=== PATIENT | female | born 1990 | race Caucasian/White ===

== ENCOUNTER 2016-08-11 05:47 | Day surgery (SDC) | payer OTHER ==
[2016-08-10 08:57] VITALS: BMI 26.6
[~2016-08-11 05:47] MED LIST: metroNIDAZOLE 0.75% VAGINAL GEL 70 GM TUBE VG ONE
--- NOTE | 2016-08-11 09:33 | HP ---
Past Medical History - Primary Care Physician PCP:: Yeni Lentz - Admission Chief Complaint: 26 yrs , LMP 07/28/16 is diagnozed HGSIL of cx , HRHPV pos , hence she is admitted for LEEP Cone Bx of Cx History of Present Illness: pap smear h/o colposcopy 07/20/16 : satisfactory Thick WE bet 4&5o'clock Cx Bx report benign , ECC HSIL infavor of THOMAS 2-3 Pap 02/24/16 HSIL, HR ( non 16/18)HPV Pos 07/18/14 NILM 01/19/14 ASCUS, Non 16/18 HR HPV pos colposcopy 02/26/14 satisfactory , WE 6 O'clock Bx LGSIL, ECC neg pap 05/24/12 NILM HPV ( non 16/18) HR pos Menst Hx : irregular cycle , since Mirena placed .2-3 months cycle, heavy for 5- 6 days before Mirena , MC, regular 28-30 daysx 3-4 days bleeding Contraception Mirena 12/31/12 inserted , removed in 2yrs Mirena reinsertion 05/06/2015 continuing presently History Source: Patient, Medical Record Limitations to Obtaining History: No Limitations - Past Medical History ELIGIBILITY SPECIALIST: No: Migraine, Seizure Cardiovascular: No: HTN, Murmur Pulmonary: No: Asthma, COPD Gastrointestinal: No: Gastritis, GERD Hepatobiliary: No: Hepatitis B Renal/: No: UTI Reproductive: No: Endometriosis, Fibroids, PID ...: 2 ...Para: 2 (2 11/03/12 & 04/19/14 ) ...LMP: 07/28/16 Heme/Onc: Yes: Anemia Infectious Disease: Yes: STD's (h/o Non 16/18 HR HPV pos). No: AIDS, HIV, MRSA Psych: No: Addictions, Anxiety, Bipolar, Depression, Panic Endocrine: No: Diabetes Mellitus, Hyperparathyroidism, Hyperthyroidism, Hypothyroidism Additional Medical History: h/o abn pap01/29/14 ASCUS, non HR HPV pos. 02/16/14 colposcopy cx bx lsil. 07/16/2014 pap - Past Surgical History Past Surgical History: Yes: None Hx Myomectomy: No Hx Transabdominal Cerclage: No - Smoking History Smoking history: Never smoked Have you smoked in the past 12 months: No Aproximately how many cigarettes per day: 0 - Alcohol/Substance Use Hx Alcohol Use: No History of Substance Use: reports: None - Social History History of Recent Travel: No Home Medications - Allergies Allergies/Adverse Reactions: Allergies Allergy/AdvReac Type Severity Reaction Status Date / Time No Known Allergies Allergy Verified 08/11/16 09:31 - Home Medications Home Medications: Ambulatory Orders NK [No Known Home Medication] 08/10/16 Physical Exam-[employer]URANCE [employer] [place] Vital Signs: Vital Signs Temperature 97.8 F 08/10/16 08:44 Pulse Rate 72 08/10/16 08:44 Respiratory Rate 20 08/10/16 08:44 Blood Pressure 107/73 08/10/16 08:44 O2 Sat by Pulse Oximetry (%) Constitutional: Yes: Well Nourished Eyes: Yes: WNL HENT: Yes: WNL, Normocephalic Neck: Yes: WNL Cardiovascular: Yes: WNL, Regular Rate and Rhythm Respiratory: Yes: WNL, Regular, CTA Bilaterally Gastrointestinal: Yes: WNL, Normal Bowel Sounds ...Rectal Exam: Yes: WNL Renal/: Yes: WNL. No: CVA Tenderness - Left, CVA Tenderness - Right Pelvis: Yes: WNL External Genitalia: Yes: Normal. No: Bleeding Internal Exam Deferred: Yes Vaginal Exam: Yes: Normal. No: Bleeding, Condyloma Cervix: Yes: Normal, Other (iud string visualized & felt). No: Cervicitis, Cerv Motion Tenderness, Polyp Uterus: Yes: Normal, Freely Moveable, Anteverted, Firm. No: Mass, Tender Adnexa: Normal: Bilateral, Not Palpable: Bilateral Breast(s): Yes: WNL. No: Discharge from Nipple, Mass Musculoskeletal: Yes: WNL Extremities: Yes: WNL. No: Calf Tenderness Edema: No Integumentary: Yes: WNL Neurological: Yes: WNL, Alert, Oriented ...Motor Strength: WNL Psychiatric: Yes: WNL Labs: Laboratory Tests 08/09/16 08/09/16 08/09/16 09:30 09:30 09:30 WBC 8.3 D Hgb 13.8 Hct 41.9 Plt Count 359 D Neutrophils % 54.7 Lymphocytes % 32.5 D Monocytes % 8.3 Eosinophils % 3.8 D INR 1.12 Sodium 139 Potassium 3.7 Chloride 102 Carbon Dioxide 30 D BUN 13 D Creatinine 0.7 D Creat Clearance w eGFR > 60 Random Glucose 61 L Calcium 9.9 Total Bilirubin 0.4 AST 14 L ALT 22 Alkaline Phosphatase 103 Albumin 4.5 Beta HCG, Quant Urine RBC Urine WBC 08/09/16 08/09/16 09:30 09:30 WBC Hgb Hct Plt Count Neutrophils % Lymphocytes % Monocytes % Eosinophils % INR Sodium Potassium Chloride Carbon Dioxide BUN Creatinine Creat Clearance w eGFR Random Glucose Calcium Total Bilirubin AST ALT Alkaline Phosphatase Albumin Beta HCG, Quant < 1.0 Urine RBC 3 Urine WBC 3 Problem List - Problem (1) HGSIL on cytologic smear of cervix Code(s): R87.613 - HIGH GRADE INTREPITH LESION CYTO SMR CRVX (HGSIL) (2) HPV test positive Code(s): YXU1242 - (3) High risk HPV infection Code(s): A63.0 - ANOGENITAL (VENEREAL) WARTS Assessment/Plan 26 yrs , endocx bx positive ifor HGSIL cx, HR (non 16/18) HPV pos Mirena iud in situ Plan LEEP cone Bx Cx
[2016-08-11] MEDS ORDERED: PROPOFOL 20 ML ONE ×2 (10:12)
[2016-08-11] MEDS ORDERED: MIDAZOLAM HCL 2 MG/2 ML SINGLE DOSE VIAL ONE (10:13)
[2016-08-11] MEDS ORDERED: metroNIDAZOLE 0.75% VAGINAL GEL 70 GM TUBE ONE (10:32)
[2016-08-11] MEDS ORDERED: ceFAZolin SODIUM 1 GM VIAL ONE (10:35)
[2016-08-11] MEDS ORDERED: DEXAMETHASONE SOD PHOSPHATE 4 MG/1 ML VIAL ONE (10:38)
[2016-08-11] MEDS ORDERED: KETOROLAC TROMETHAMINE 30 MG/1 ML VIAL ONE (10:38)
[2016-08-11] MEDS ORDERED: IODINE/POTASSIUM IODIDE 5%/10% 14 ML BOTTLE NR ONE (10:50)
[2016-08-11] MEDS ORDERED: FERRIC SUBSULFATE 500 ML BOTTLE TP ONE (10:58)
[2016-08-11] MEDS ORDERED: SILVER NITRATE 75% APPLIC STCK 1 PKT EACH NR ONE (11:04)
[2016-08-11] MEDS ORDERED: metroNIDAZOLE 0.75% VAGINAL GEL 70 GM TUBE VG ONE (11:10)
--- NOTE | 2016-08-11 11:26 | OP ---
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 3 to 9o'clock, 9 to 1o'clock, 1to 3o'clock ecc done hemostasis achieved by coag cautery, mosel & AgNo3 cauyery Metrogel gel inserted .iv Ancef preop was given Surgeon: Yeni Lentz Anesthesiologist/CONSULTING PRACTICE DIRECTOR: Alta Bran Anesthesia: General Specimens Removed: cervix portion 3 to 90'clock. 9 to 1o'clock. 1to 3o'clock. ecc Estimated Blood Loss (mls): 150 Operative Report Dictated: Yes
[2016-08-11] MEDS ORDERED: ACETAMINOPHEN 325 MG TABLET (FP) PO PRN (11:33)
[2016-08-11] MEDS ORDERED: IBUPROFEN 400 MG TABLET (FP) PO PRN (11:33)
--- NOTE | 2016-08-11 12:28 | OP ---
DATE OF OPERATION: 08/11/2016 PREOPERATIVE DIAGNOSES: High-grade squamous intraepithelial lesion, cervix, and high-risk human papillomavirus non 16, 18 positive, Mirena intrauterine device in situ . POSTOPERATIVE DIAGNOSES: High-grade squamous intraepithelial lesion, cervix, and high-risk human papillomavirus non 16, 18 positive, pending pathology. OPERATION DONE: Loop electrosurgical excision procedure cone biopsy of the cervix. FINDINGS: This is a 26-year-old 2, para 2-0-0-2, LMP July 28, 2016, beta HCG negative, has a Mirena IUD in utero. Pap smear on February 24, 2016, was high- grade NAHUM with non 16, 18 HPV positive. July 20, 2016, colposcopy done which shows a thick white epithelium at 4 or 5 o'clock and the biopsy report was a benign cervix and ECC was positive for high-grade NAHUM, THOMAS 2 to 3. PROCEDURE: Patient was taken to the operating room table. General anesthesia was given. Lithotomy position was given. Pubis, perineum, vagina were painted with vinegar. Then, a pelvic examination was done. Uterus was anteverted, normal size. Cervix was posterior. Adnexae were not palpable. Cervix was also hypertrophy. Then, a medium-sized Banda plastic speculum was inserted into the vagina. Cervix was exposed and the IUD string was visualized which was black in color. Then, with a 50:50 blend current on the cutting mode first between 3 and 9 o'clock, then between 9 and 1, and lastly between 1 and 3 o'clock the segment of the cervix was dissected and sent for pathology examination separately. ECC was done. Considerable bleeding was encountered and so initially with just the ball coag current the cervix was cauterized and bleeding was controlled but still continued to bleed, so then Monsel solution followed by the silver nitrate was used and finally hemostasis was achieved. Then, all around the periphery of the cut cone cauterization was done. Estimated blood loss was 150 mL. Patient tolerated procedure well. At the end of the procedure, MetroGel gel was introduced into the cervix and then speculum was removed. She was transferred to the recovery room in stable condition. Prior to starting the procedure, IV Ancef 1 g intraoperative was given and at the end of the procedure I could not visualize the string of the IUD. Probably got cauterized during hemostasis. Maykel [id number] MTDD
[2016-08-11 14:31] VITALS: BP 100/58; PULSE 74; TEMP 98
--- NOTE | 2016-08-13 14:20 | PATH ---
Surgical Pathology Report Patient Name: CHANTEL QUARLES [facility]. Rec. #: [id number] /Age/Gender: 1990 (Age: 26) / F Account: [id number] Location: [facility] SURGICAL Taken: 08/11/2016 Received: 08/11/2016 Reported: 08/13/2016 Physicians: Yeni Lentz M.D. Specimen(s) Received A: LEEP CONE BIOPSY 1-3:00 B: LEEP CONE BIOPSY 1-9:00 C: ENDOCERVICAL CURETTINGS D: LEEP CONE BIOPSY 3-9:00 Clinical History HGSIL Cervix Pap-HGSIL Colposcopy 07/20/1645-[id number] of HGSIL (THOMAS 2-3), Cx bx-benign HR Non 16/18 HPV pos Mirena IUD in utero Final Diagnosis A. CERVIX, 1-3:00 LEEP CONE BIOPSY: NO TISSUE PRESENT. B. CERVIX,1-9:00, LEEP CONE BIOPSY: CERVICAL SQUAMOUS AND ENDOCERVICAL MUCOSA WITH FOCAL LOW GRADE SQUAMOUS INTRAEPITHELIAL LESION (CERVICAL INTRAEPITHELIAL NEOPLASIA 1/ THOMAS 1). SURGICAL RESECTION MARGINS: APPEAR NEGATIVE FOR DYSPLASIA. TRANSFORMATION ZONE: PRESENT. C. ENDOCERVIX, CURETTAGE: FRAGMENTS OF BENIGN ENDOCERVICAL TISSUE. FRAGMENTS OF BENIGN SQUAMOUS EPITHELIUM. FRAGMENT OF PLACENTAL SITE NODULE (SEE COMMENT). Comment: Immunohistochemical stain for p16 and Ki67 performed at [place], [place] ([id number]) and interpreted [facility] show p16 negativity and low Ki67 labeling, supporting the interpretation above. D. CERVIX, 3-9:00, LEEP CONE BIOPSY: CERVICAL SQUAMOUS AND ENDOCERVICAL MUCOSA WITH FOCAL HIGH GRADE SQUAMOUS INTRAEPITHELIAL LESION (CERVICAL INTRAEPITHELIAL NEOPLASIA 2-3/ THOMAS 2-3), PARTIALLY DETACHED. SURGICAL RESECTION MARGINS: APPEAR NEGATIVE FOR HIGH GRADE DYSPLASIA. TRANSFORMATION ZONE: PRESENT. Electronically Signed Gm Brody M.D. Gross Description A. Received in formalin labeled "LEEP cone biopsy between 1:00-3:00" is a blood-stained Telfa. No tissue is present. No sections are submitted. B. Received in formalin labeled "LEEP cone biopsy between 1-9:00" is a 1.7 x 0.9 x 0.2 cm pink-hood, irregular, unoriented portion of soft tissue. The specimen is surface by a hood-pink, shiny glistening mucosa. The specimen is inked blue, serially sectioned and entirely submitted in 2 cassettes. C. Received in formalin labeled "endocervical curettings" is a 0.9 x 0.7 x 0.2 cm aggregate of hood red soft tissue fragments admixed with blood-tinged mucous. The formalin is filtered and the specimen is entirely submitted in one cassette. D. Received in formalin labeled "LEEP cone biopsy between 3-9:00" are 2 pink-hood, irregular, unoriented portions of soft tissue measuring 0.4 x 0.3 x 0.2 cm and 1.0 x 0.5 x 0.3 cm. The specimens are inked blue, serially sectioned and entirely submitted in 2 cassettes. 08/11/2016 [facility]08/11/2016
== END 2016-08-11 13:45 | disposition home or self-care (01) ==
LOC: JASU-SURG 05:47
PROVIDERS: ATTEND Obstetrics & Gynecology
PROC: 0UBC7ZX Excision of Cervix, Via Natural or Artificial Opening, Diagnostic (ICD-10-PCS; principal; 2016-08-11 10:00)
DX: N87.1 Moderate cervical dysplasia (principal)
CPT/HCPCS: 88300-TC; 88305-TC; 88307-TC; 94760

== ENCOUNTER 2017-01-08 19:59 | Emergency (ER) | payer OTHER ==
[2017-01-08 20:18] VITALS: BP 105/63; PULSE 91; TEMP 98.3; BMI 24.6
[2017-01-08] MEDS ORDERED: IBUPROFEN 600 MG TABLET (FP) PO ONE ×2 (21:08→21:28)
--- NOTE | 2017-01-08 21:14 | PDOC ---
History of Present Illness - General Chief Complaint: Injury Stated Complaint: FOOT INJURY Time Seen by Provider: 01/08/17 20:58 - History of Present Illness Initial Comments: 01/08/17 21:13 This is a 26-year-old woman without significant past medical history who presents with left foot pain for 2 days. Patient states she woke up with the pain on January 07. She does not remember striking foot or any inversion or eversion injuries. She reports the pain is 10 out of 10 cannot describe the pain. She denies any fevers, chills, headache, dizziness, chest pain, shortness of breath, abdominal pain, nausea, vomiting, diarrhea, dysuria. Past History - Past Medical History Allergies/Adverse Reactions: Allergies Allergy/AdvReac Type Severity Reaction Status Date / Time No Known Allergies Allergy Verified 08/11/16 09:31 Home Medications: Ambulatory Orders NK [No Known Home Medication] 01/08/17 Anemia: No Asthma: No Cancer: No Cardiac Disorders: No CVA: No COPD: No CHF: No Dementia: No Diabetes: No GI Disorders: No Disorders: No HTN: No Hypercholesterolemia: No Liver Disease: No Seizures: No Thyroid Disease: No - Suicide/Smoking/Psychosocial Hx Smoking Status: No Smoking History: Never smoked Have you smoked in the past 12 months: No Number of Cigarettes Smoked Daily: 0 Hx Alcohol Use: No Drug/Substance Use Hx: No Substance Use Type: None Hx Substance Use Treatment: No *Physical Exam - Vital Signs Last Vital Signs Temp Pulse Resp BP Pulse Ox 98.3 F 91 H 20 105/63 99 01/08/17 20:15 01/08/17 20:15 01/08/17 20:15 01/08/17 20:15 01/08/17 20:15 ED Treatment Course - RADIOLOGY Radiology Studies Ordered: Category Date Time Status ANKLE & FOOT-LEFT* [RAD] Stat Radiology 01/08/17 21:08 Ordered Medical Decision Making - Medical Decision Making 01/08/17 21:14 A/P: This is a 26-year-old woman without significant past medical history who presents with left foot pain for 2 days. Patient states she woke up with the pain on January 07. She does not remember striking foot or any inversion or eversion injuries. She reports the pain is 10 out of 10 cannot describe the pain. She denies any fevers, chills, headache, dizziness, chest pain, shortness of breath, abdominal pain, nausea, vomiting, diarrhea, dysuria. Patient is alert and oriented 3 and in no apparent distress. Tenderness to left foot at the dorsal lateral aspect of the foot. Also with tenderness at the navicular. Patient is able to fully articulated joint against resistance. +2 dorsalis pedis pulse present. No discoloration of noted. Full sensation noted to foot. Differential diagnosis include fracture, [place] this injury, severe sprain I will obtain a urine test, x-ray of the left ankle and foot, and I will give Motrin urine test is negative. 01/08/17 21:49 X-rays read by me-no obvious fracture, dislocation, subluxation present in foot or ankle. Most likely sprain of foot we'll refer patient to orthopedist for continued evaluation. *DC/Admit/Observation/Transfer Diagnosis at time of Disposition: Sprain of left foot Qualifiers: Encounter type: initial encounter Qualified Code(s): S93.602A - Unspecified sprain of left foot, initial encounter; S93.602A - Unspecified sprain of left foot, initial encounter - Discharge Dispostion Disposition: HOME Condition at time of disposition: Stable Admit: No - Referrals Referrals: Jak Baxter MD [Staff Physician] - - Patient Instructions Additional Instructions: Use un zapato de suela dura para evitar el movimiento de las articulaciones del pie. Zarate Tylenol o Motrin segn sea necesario para el dolor. Le mathew dado aurora referencia a un ortopedista. Tiffany aurora evelina si el pie no se siente mejor en los prximos 4 esquivel. Regrese al departamento de emergencias por hinchazn, enrojecimiento, fiebre, empeoramiento del dolor o cualquier otra inquietud. Muchas parul por elegirnos para brindarle ny necesidades emergentes de atenci n mdica.
== END 2017-01-08 22:03 | disposition home or self-care (01) ==
LOC: JERFT 19:59
DX: S93.602A Unspecified sprain of left foot, initial encounter (principal); X58.XXXA Exposure to other specified factors, initial encounter; Y93.89 Activity, other specified; Y92.038 Other place in apartment as the place of occurrence of the external cause; Y99.8 Other external cause status
CPT/HCPCS: 73610-TC-LT; 73630-TC-LT; 84703; 99281-25